=== PATIENT | female | born 1995 | race Caucasian/White ===

== ENCOUNTER 2017-01-31 11:58 | Emergency (ER) | payer SELFPAY ==
[2017-01-31] MEDS ORDERED: Ondansetron ODT 4 MG TAB ONE (12:30)
[2017-01-31] MEDS ORDERED: HYDROcodone/Acetaminophen 5/325 mg Tablet ONE (12:36)
== END 2017-01-31 12:46 | disposition home or self-care (01) ==
LOC: BURERS 11:58
DX: L02.412 Cutaneous abscess of left axilla (principal); L03.112 Cellulitis of left axilla; J45.909 Unspecified asthma, uncomplicated
CPT/HCPCS: 10060; Q0162

== ENCOUNTER 2017-08-23 12:06 | Emergency (ER) | payer SELFPAY ==
[2017-08-23] MEDS ORDERED: Ketorolac Tromethamine 60 MG/2 ML VIAL ONE (12:15)
--- NOTE | 2017-08-23 20:34 | RAD ---
LEFT INDEX FINGER: 08/23/17 A fracture of the middle phalanx is present. There is slight displacement and angulation. The joints appear intact. IMPRESSION: Middle phalanx fracture. POS: HOME
== END 2017-08-23 12:53 | disposition home or self-care (01) ==
LOC: BURERS 12:06
DX: S62.621A Displaced fracture of middle phalanx of left index finger, initial encounter for closed fracture (principal); J45.909 Unspecified asthma, uncomplicated; F17.210 Nicotine dependence, cigarettes, uncomplicated; W19.XXXA Unspecified fall, initial encounter
CPT/HCPCS: 29125; 96372; J1885

== ENCOUNTER 2018-08-28 11:58 | Emergency (ER) | payer SELFPAY ==
[2018-08-28] MEDS ORDERED: Famotidine 20 MG TAB ONE ×2 (12:28→12:29)
[2018-08-28] MEDS ORDERED: Acetylcysteine (ACETADOTE) 20% 200 MG/ML (30 ML VIAL) ONE (12:29)
[2018-08-28] MEDS ORDERED: Lidocaine Viscous Sol 2% 15 ml UD Cup ONE (12:30)
[2018-08-28] MEDS ORDERED: Mag-Al Plus 1200 MG/1200 MG/120 MG/30 ML UDCUP ONE (12:30)
== END 2018-08-28 12:38 | disposition home or self-care (01) ==
LOC: BURERS 11:58
DX: K29.00 Acute gastritis without bleeding (principal); J45.909 Unspecified asthma, uncomplicated; F17.210 Nicotine dependence, cigarettes, uncomplicated
CPT/HCPCS: 99283; J0132